=== PATIENT | female | born 1970 | race Caucasian/White ===

== ENCOUNTER 2017-06-11 17:22 | Emergency (ER) | payer BC ==
[2017-06-11] MEDS ORDERED: Pepcid 20 MG VIAL IV ONE ×2 (17:40→17:46)
[2017-06-11] MEDS ORDERED: BABY ASPIRIN 81 MG CHEW PO ONE (17:40)
[2017-06-11] MEDS ORDERED: Vistaril 50 MG/ML IM ONE ×2 (17:41→17:46)
[2017-06-11] MEDS ORDERED: Sodium Chloride 0.9% 1000 ML 1,000 ML IV SCH (17:45)
[2017-06-11] MEDS ORDERED: Sodium Chloride 0.9% 1000 ML 1,000 ML ONE (17:46)
[2017-06-11] MEDS ORDERED: BABY ASPIRIN 81 MG CHEW ONE (17:46)
[2017-06-11 17:52] LABS: BASOPHIL % 0.3 % (0.0-0.4); Eosinophil % 3.1 % (0.00-5.0); Lymphocytes % 34.6 % (24.0-44.0); Mean Cell Volume 84.7 fl (78-100); Mean Corpuscular Hemoglobin 29.1 pg (26-32); Mean Platelet Volume 9.4 fl (6-9.5); Platelet Count 264 K/mm3 (150-450); Red Blood Count 4.64 M/mm3 (4.1-5.4); Red Cell Distribution Width 13.6 % (11.5-14.0); White Blood Count 5.8 K/mm3 (4.0-10.5)
--- NOTE | 2017-06-11 18:04 | ERPHSYRPT ---
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 slight SOB and states sweating. states at [employer] prior to this episode. able to reporduct pain on palpation. lungs clear. denies cough. has jhad similar episdes in the pasrt and was told she had anxiety. denies leg swelling. Triage Nursing Assessment: alert and oriented. tearful anxious. 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 has [employer] prior to episode. able to reproduce pain on palpation. lungs clear bilat. denies leg swelling. denies cough. Physician History: CC: chest pain Hx: 46 y/o patient of Dr Botello with hx of breast CA s/p bilateral mastectomy in September. She has hx of COPD. She was at [employer] and had chest pain, burning in nature, radiating to her throat, associated with shortness of breath. No fever or cough. She took a baby asa from the pharmacy. She was scared this was more than her usual GERD. She has been sleeping a lot. She was upset that her friend yesterday from cancer. She states perimenopausal. Timing/Duration: today Chest Pain Radiation: neck Severity of Pain-Max: severe Severity of Pain-Current: moderate Nitro Today/Relief: no nitro taken today Aspirin Treatment Today: 81 mg x 2, provided at home, provided by ED Allergies/Adverse Reactions: Sulfa (Sulfonamide Antibiotics) Allergy (Verified 06/11/17 18:36) Immunizations Up to Date: Yes - Review of Systems Constitutional: No Fever, No Chills Eyes: No Symptoms Ears, Nose, & Throat: No Symptoms Respiratory: Dyspnea, No Cough Cardiac: Chest Pain, No Edema, No Syncope Abdominal/Gastrointestinal: No Abdominal Pain, No Nausea, No Vomiting Genitourinary Symptoms: No Dysuria Skin: No Rash Neurological: No Headache All Other Systems: Reviewed and Negative - Past Medical History Pertinent Past Medical History: Yes Respiratory History: COPD Female Reproductive Disorders: Breast Cancer - Past Surgical History Past Surgical History: Yes Female Surgical History: Mastectomy - Social History Smoking Status: Current every day smoker Drug Use: none Patient Lives Alone: No - Nursing Vital Signs Nursing Vital Signs: Initial Vital Signs Pulse Rate 97 H 06/11/17 17:29 Respiratory Rate 20 06/11/17 17:29 Blood Pressure 157/90 06/11/17 17:29 O2 Sat by Pulse Oximetry 98 06/11/17 17:29 Pain Scale Pain Intensity 0 - Physical Exam General Appearance: alert, obese, other (very anxious appearing and upset) Eye Exam: PERRL/EOMI Ears, Nose, Throat Exam: normal ENT inspection, moist mucous membranes Neck Exam: normal inspection, non-tender, supple Respiratory Exam: normal breath sounds Cardiovascular Exam: regular rate/rhythm Gastrointestinal/Abdomen Exam: soft, No tenderness, No distention Back Exam: normal inspection Extremity Exam: normal inspection, normal range of motion, No calf tenderness, No pedal edema Neurologic Exam: alert, oriented x 3, cooperative, sensation nml, No motor deficits Skin Exam: warm, dry, No rash SpO2 Interpretation: normal SpO2: 97 Oxygen Delivery: Room Air - Course Nursing assessment & vital signs reviewed: Yes EKG Interpreted by Me: RATE (81), Sinus Rhythm, NORMAL AXIS, NORMAL INTERVALS ( QTc 437), NORMAL QRS, NORMAL ST-T - Radiology Exams cxr X-ray Interpretation: Interpreted by me, Negative, No Pneumonia, Other (no mass) Ordered Tests: Active Orders 24 hr Category Date Time Status Seat Joiner Chainstitch STAT Care 06/11/17 17:41 Active EKG-ER Only STAT Care 06/11/17 17:40 Active IV Insertion STAT Care 06/11/17 17:40 Active Pulse Oximetry (ED) STAT Care 06/11/17 17:40 Active CHEST 1 VIEW (PORTABLE) Stat Exams 06/11/17 17:41 Taken CHEST WITH CONTRAST [CT] Stat Exams 06/11/17 18:58 Taken CBC W DIFF Stat Lab 06/11/17 17:45 Completed CMP Stat Lab 06/11/17 17:45 Completed D-DIMER QUANTITATION Stat Lab 06/11/17 17:45 Completed HCG QUALITATIVE,SERUM Stat Lab 06/11/17 17:45 Completed TROPONIN Q3H Lab 06/11/17 17:45 Completed TROPONIN Q3H Lab 06/11/17 20:55 Completed TROPONIN Q3H Lab 06/11/17 23:45 Ordered TROPONIN Q3H Lab 06/12/17 02:45 Ordered TROPONIN Q3H Lab 06/12/17 05:45 Ordered Medication Summary Generic Name Dose Route Start Last Admin Trade Name Tru PRN Reason Stop Dose Admin Sodium Chloride 1,000 mls @ 100 mls/hr 06/11/17 17:45 06/11/17 17:50 Sodium Chloride 0.9% 1000 Ml IV 07/11/17 17:44 100 mls/hr .Q10H WEI Administration Discontinued Medications Generic Name Dose Route Start Last Admin Trade Name Tru PRN Reason Stop Dose Admin Aspirin 81 mg 06/11/17 17:40 06/11/17 17:53 Baby Aspirin 81 Mg Chew PO 06/11/17 17:41 81 mg STAT ONE Administration Aspirin Confirm 06/11/17 17:46 Baby Aspirin 81 Mg Chew Administered 06/11/17 17:47 Dose 81 mg .ROUTE .STK-MED ONE Famotidine 20 mg 06/11/17 17:40 06/11/17 17:49 Pepcid 20 Mg Vial IV 06/11/17 17:41 20 mg STAT ONE Administration Famotidine Confirm 06/11/17 17:46 Pepcid 20 Mg Vial Administered 06/11/17 17:47 Dose 20 mg IV .STK-MED ONE Hydroxyzine HCl 50 mg 06/11/17 17:41 06/11/17 17:49 Vistaril 50 Mg/Ml IM 06/11/17 17:42 50 mg STAT ONE Administration Hydroxyzine HCl Confirm 06/11/17 17:46 Vistaril 50 Mg/Ml Administered 06/11/17 17:47 Dose 50 mg IM .STK-MED ONE Lab/Rad Data: Laboratory Result Diagrams 06/11/17 17:45 06/11/17 17:45 Laboratory Results 06/11/17 06/11/17 06/11/17 Range/Units 20:55 17:45 17:45 WBC (4.0-10.5) K/mm3 RBC (4.1-5.4) M/mm3 Hgb (12.0-16.0) gm/dl Hct (35-47) % MCV (78-100) fl MCH (26-32) pg MCHC (32-36) g/dl RDW (11.5-14.0) % Plt Count (150-450) K/mm3 MPV (6-9.5) fl Gran % (36.0-66.0) % Lymphocytes % (24.0-44.0) % Monocytes % (0.0-12.0) % Eosinophils % (0.00-5.0) % Basophils % (0.0-0.4) % Basophils # (0-0.4) D-Dimer (0-500) ng/mL Sodium (136-145) mEq/L Potassium (3.5-5.1) mEq/L Chloride (98-107) mEq/L Carbon Dioxide (21-32) mEq/L Anion Gap (5-15) MEQ/L BUN (9-20) mg/dL Creatinine (0.55-1.30) mg/dl Estimated GFR ML/MIN Glucose (70-110) MG/DL Calcium (8.5-10.1) mg/dL Total Bilirubin (0.2-1.0) mg/dL AST (15-37) U/L ALT (12-78) U/L Alkaline Phosphatase (46-116) U/L Troponin I < 0.017 < 0.017 (0.000-0.056) ng/ml Serum Total Protein (6.4-8.2) gm/dL Albumin (3.4-5.0) g/dL Serum , Qual NEGATIVE (Negative) 06/11/17 06/11/17 06/11/17 Range/Units 17:45 17:45 17:45 WBC 5.8 (4.0-10.5) K/mm3 RBC 4.64 (4.1-5.4) M/mm3 Hgb 13.5 (12.0-16.0) gm/dl Hct 39.3 (35-47) % MCV 84.7 (78-100) fl MCH 29.1 (26-32) pg MCHC 34.4 (32-36) g/dl RDW 13.6 (11.5-14.0) % Plt Count 264 (150-450) K/mm3 MPV 9.4 (6-9.5) fl Gran % 55.0 (36.0-66.0) % Lymphocytes % 34.6 (24.0-44.0) % Monocytes % 7.0 (0.0-12.0) % Eosinophils % 3.1 (0.00-5.0) % Basophils % 0.3 (0.0-0.4) % Basophils # 0.02 (0-0.4) D-Dimer 684 H* (0-500) ng/mL Sodium 141 (136-145) mEq/L Potassium 3.6 (3.5-5.1) mEq/L Chloride 104 (98-107) mEq/L Carbon Dioxide 26.2 (21-32) mEq/L Anion Gap 14.2 (5-15) MEQ/L BUN 11 (9-20) mg/dL Creatinine 0.83 (0.55-1.30) mg/dl Estimated GFR > 60 ML/MIN Glucose 130 H (70-110) MG/DL Calcium 9.3 (8.5-10.1) mg/dL Total Bilirubin 0.30 (0.2-1.0) mg/dL AST 35 (15-37) U/L ALT 38 (12-78) U/L Alkaline Phosphatase 115 (46-116) U/L Troponin I (0.000-0.056) ng/ml Serum Total Protein 7.9 (6.4-8.2) gm/dL Albumin 3.6 (3.4-5.0) g/dL Serum , Qual (Negative) - Progress Progress Note: 06/11/17 18:58 Pt is feeling better after IVF, pepcid, and vistaril. She has hx of CA with pleuritic chest pain. Discussed PE and will get CTA to rule out PE. 06/11/17 19:37 Await CTA results. Report to dr Shirley for further care and disposition. - Departure Clinical Impression: Non-cardiac chest pain Condition: Fair Referrals: ABELARDO BOTELLO [Primary Care Provider] - Additional Instructions: Return home. Rest. Plenty of fluids follow-up with Dr. Hicks call tomorrow and schedule an appointment. Return for acute distress or for severe symptoms. Or for any problems. <ANGELINA SHIRLEY - Last Filed: 06/11/17 21:36> - Progress Progress: improved, re-examined Air Movement: fair Progress Note: 06/11/17 20:40 46-year-old white female with history of breast cancer status post bilateral mastectomy in September also with a history of COPD. Patient arrives with complaint of pain and burning in her anterior chest 35 minutes prior to arrival. Patient initially seen by Dr. Urias. Patient given Vistaril improved EKG on this patient normal sinus rhythm 81 bpm normal EKG Chest x-ray no acute disease process noted CTA of the chest negative PE, negative cardiopulmonary findings small hiatal hernia. Patient's CBC CMP troponin within normal limits. D-dimer is slightly elevated at 684. Patient currently pain free. Will plan to repeat troponin plan home if normal. Physical examination well-developed obese white female alert oriented 3. Head atraumatic normocephalic. Eyes PERRLA EOMI fundi unremarkable. Ears TMs engle intact bilaterally. Nose is clear. Throat is clear. Neck is supple full range of motion. Lungs clear to auscultation and equal bilaterally. Heart regular rate and rhythm without murmur. Abdomen soft nontender nondistended positive bowel sounds. Extremities full range of motion pulse equal symmetrical 2 over 4. Neuro cranial nerves II through XII are intact DTRs symmetrical 2 over 4 [place] Coma Scale is 15. Impression chest pain. Plan repeat troponin. 06/11/17 21:34 Patient without complaints no further chest pain rhythm stable. Repeat troponin within normal limits Will discharge. - Departure Time of Disposition: 21:35 Departure Disposition: Home Critical Care Time: No
[2017-06-11 18:15] LABS: ALBUMIN 3.6 g/dL (3.4-5.0); ALKALINE PHOSPHATASE 115 U/L (46-116); ANION GAP 14.2 MEQ/L (5-15); BLOOD UREA NITROGEN 11 mg/dL (9-20); CHLORIDE 104 mEq/L (98-107); Carbon Dioxide 26.2 mEq/L (21-32); Glucose 130 MG/DL (70-110); Potassium 3.6 mEq/L (3.5-5.1); SGOT/AST 35 U/L (15-37); SGPT/ALT 38 U/L (12-78); SODIUM 141 mEq/L (136-145); Total Protein 7.9 gm/dL (6.4-8.2)
[2017-06-11 21:46] VITALS: BP 110/74; PULSE 70; O2SAT 96
--- NOTE | 2017-06-12 08:32 | XRAY ---
Indication: Chest pain. Comparison: April 10, 2013. Portable chest remains clear. Heart is not enlarged. Bony thorax intact. No new/acute findings.
--- NOTE | 2017-06-12 08:38 | XRAY ---
Indication: Chest pain, short of breath, and elevated d-dimer. Multiple contiguous axial images obtained through the chest using 80 cc Isovue 370 contrast and PE protocol. Comparison: None There is satisfactory opacification of the pulmonary arteries to include the lobar and segmental branches. No filling defect or pulmonary embolus. Heart is not enlarged. Aorta is normal in course and caliber. No pathologic mediastinal/hilar lymphadenopathy. Small hiatal hernia. Examination of the lung parenchyma is negative for suspicious pulmonary mass, infiltrate, consolidation, or effusion. Bony thorax intact. Limited upper abdomen demonstrates fatty liver and 12.3 cm splenomegaly. Impression: 1. Negative pulmonary embolus. No acute cardiopulmonary abnormalities. 2. Incidental small hiatal hernia, fatty liver, and splenomegaly. CT DI 22.75
== END 2017-06-11 21:49 | disposition home or self-care (01) ==
LOC: ED 17:22
DX: R07.89 Other chest pain (principal); Z85.3 Personal history of malignant neoplasm of breast; J44.9 Chronic obstructive pulmonary disease, unspecified
CPT/HCPCS: 36000; 36415; 71010; 71260; 80053; 84484; 84703; 85025; 85379; 93005; 93041; 96360; 96361; 96372; 96374; 99284; J3410; A9270-GY

== ENCOUNTER 2020-04-08 06:47 | Day surgery (SDC) | payer BC ==
--- NOTE | 2020-04-01 15:02 | HP ---
DATE OF SURGERY: 04/08/2020 HISTORY OF PRESENT ILLNESS: The patient presented to the office in need of endoscopy. The patient has a history of breast cancer. She does not have a colonoscopy to date. She is five years in remission. She denies any symptoms currently. PAST MEDICAL HISTORY: Hypertension. Depression. Hyperlipidemia. Reflux. PAST SURGICAL HISTORY: Tubal ligation. Cyst removal. Torn meniscus repair. Endometrial ablation. Double mastectomy. ALLERGIES: SULFA. LATEX. MEDICATIONS: Lisinopril, fluoxetine, Zetia, Prilosec. FAMILY HISTORY: Mother cancer of unknown type, heart disease, chronic obstructive pulmonary disease. Father heart disease. SOCIAL HISTORY: Smokes one pack or less a day. Alcohol - Drinks occasionally. REVIEW OF SYSTEMS: CONSTITUTIONAL: Denies fever or chills. CHEST: Denies shortness of breath. CVS: Denies chest pain. ABDOMEN: Denies abdominal pain, nausea, vomiting, diarrhea, constipation or rectal bleeding. : Denies dysuria or hematuria. PHYSICAL EXAMINATION: GENERAL: No acute distress. CHEST: Nonlabored. No shortness of breath. CVS: Regular rate and rhythm. ABDOMEN: Soft, nontender to palpation. EXTREMITIES: No edema. NEUROLOGIC: Alert. PSYCHIATRIC: Appropriate. IMPRESSION: Screening colonoscopy, history of breast cancer. PLAN: Colonoscopy with Dr. Isac Cadet. As dictated by Jackie Leblanc NP.
[~2020-04-08 06:47] MED LIST: DIPRIVAN 200 MG/20 ML IV ONE; Ketamine HCl 50 MG/ML ONE; Lactated Ringers 1,000 ML IV ONE; Lactated Ringers 1,000 ML IV SCH
[2020-04-08] MEDS ORDERED: Transderm Scop 1.5MG Patch ONE (07:50)
[2020-04-08] MEDS ORDERED: Transderm Scop 1.5MG Patch TOP PRN (07:53)
[2020-04-08] MEDS ORDERED: Lactated Ringers 1,000 ML IV ONE (09:22)
[2020-04-08 10:14] VITALS: O2SAT 97
[2020-04-08 10:15] VITALS: BP 123/83; PULSE 82
--- NOTE | 2020-04-08 10:35 | OP ---
SURGERY DATE/TIME: 04/08/2020 0851 PREOPERATIVE DIAGNOSES: 1) Screening. 2) History of left breast cancer. POSTOPERATIVE DIAGNOSIS: Two polyps both 1 cm. PROCEDURE: Colonoscopy complete to cecum with hot polypectomy, a 1.0 cm hepatic and 1.0 cm descending colon polyp with hot biopsy forceps. SURGEON: Isac Cadet M.D. ANESTHESIA: MAC. COMPLICATIONS: None. CONDITION: Stable. FINDINGS: Moderate internal hemorrhoids. INDICATION: The patient presents for screening. She does have a history of breast cancer. DESCRIPTION OF PROCEDURE: She is taken to endoscopy. MAC sedation provided. Excellent anesthesia level was present. Anal digital examination satisfactory. Scope advanced to the cecum. Ileocecal valve and appendiceal orifice was normal. On withdrawal, hepatic flexure polyp 1 cm and a mid-descending colon polyp 1 cm both taken with hot biopsy forceps to extinction and career services representative biopsy submitted in two separate containers. Moderate internal hemorrhoids. The patient tolerated the procedure satisfactorily. Three year follow up.
== END 2020-04-08 10:10 | disposition home or self-care (01) ==
LOC: SDC 06:47
PROVIDERS: ATTEND Surgery
DX: Z12.11 Encounter for screening for malignant neoplasm of colon (principal); D12.3 Benign neoplasm of transverse colon; D12.4 Benign neoplasm of descending colon; K64.8 Other hemorrhoids; I10 Essential (primary) hypertension; E78.5 Hyperlipidemia, unspecified; K21.9 Gastro-esophageal reflux disease without esophagitis; Z85.3 Personal history of malignant neoplasm of breast; Z79.899 Other long term (current) drug therapy
CPT/HCPCS: J2704; A9270-GY

== ENCOUNTER 2024-05-15 06:42 | Day surgery (SDC) | payer BC ==
--- NOTE | 2024-05-13 17:56 | HP ---
HISTORY AND PHYSICAL HISTORY OF PRESENT ILLNESS: The patient is a 53-year-old female who presents with need for endoscopy. She had a colonoscopy about 2020. She had some polyps. She has a personal history of breast cancer. She has no colon complaints. No family history of colon cancer. PAST MEDICAL HISTORY: Hypertension, hyperlipidemia, GERD, breast cancer, COPD, arthritis, diabetes. HOME MEDICATIONS: Zetia, omeprazole, lisinopril, duloxetine, atorvastatin, albuterol. ALLERGIES: [place], sulfa, adhesives. PAST SURGICAL HISTORY: Hysterectomy, ganglion cyst, endometrial ablation, bilateral mastectomy. SOCIAL HISTORY: An everyday smoker. Occasional alcohol. FAMILY HISTORY: Negative. REVIEW OF SYSTEMS: CONSTITUTIONAL: Denies fever or chills. CHEST: Denies shortness of breath. CARDIOVASCULAR: Denies any chest pain. ABDOMEN: Denies abdominal pain. PHYSICAL EXAMINATION: GENERAL: No acute distress. CARDIOVASCULAR: Regular rate and rhythm. RESPIRATORY: Nonlabored. No shortness of breath ABDOMEN: Soft. IMPRESSION: History of polyps, history of breast cancer. PLAN: Colonoscopy with Dr. Isac Cadet. This report was dictated for Dr. Cadet by Jackie Leblanc NP.
[2024-05-15] MEDS: Lactated Ringers 1,000 ML IV SCH (07:05)
[2024-05-15] MEDS ORDERED: Xylocaine-Mpf 2% 5 Ml Vial ONE (09:07)
[2024-05-15] MEDS ORDERED: Versed 2 MG/2 ML Injection ONE (09:08)
[2024-05-15] MEDS ORDERED: DIPRIVAN 200 MG/20 ML IV ONE ×2 (09:08→09:49)
[2024-05-15] MEDS ORDERED: ROBINUL ONE (09:27)
[2024-05-15] MEDS ORDERED: SUBLIMAZE 100 MCG/2 ML ONE (09:32)
[2024-05-15 09:47] VITALS: RESP 16
[2024-05-15 10:01] VITALS: BP 113/82; PULSE 82; TEMP 96.3; O2SAT 99
--- NOTE | 2024-05-16 09:40 | OP ---
SURGERY DATE/TIME: 05/15/2024 [id number] PREOPERATIVE DIAGNOSES: 1) Epigastric discomfort, some difficulty swallowing. 2) History of colon polyps 5 years. POSTOPERATIVE DIAGNOSES: 1) Gastroesophageal mass. 2) Colon polyps. PROCEDURES: 1) Esophagogastroduodenoscopy with 5 cold biopsies at the esophagogastric junction. There were findings of an irregular mass at the esophagogastric junction. 2) Colonoscopic examination complete to the cecum with hot polypectomy of 5 mm hepatic flexure polyp, hot polypectomy 5 mm rectal polyp and hot snare polypectomy of a proximal sigmoid lesion at 50 cm that was pedunculated. SURGEON: Isac Cadet MD AUTOMOTIVE WELDER: Frederick Hines Med Student III ANESTHESIA: General. COMPLICATIONS: None. CONDITION: Stable. INDICATION: The patient presents with the above indications. DESCRIPTION OF PROCEDURE AND FINDINGS: Patient was brought to the endoscopy. Left lateral decubitus position. Scope introduced. Pharyngoesophageal junction normal. Esophagus normal down to 32 cm. A mass was between 32 and 38. It was 6 cm long, it was irregular and involved about 270 degrees of the esophagus. Five retail customer service representative cold biopsies were taken. There was a 1 inch hiatal hernia. The body and antrum was, otherwise, normal. Pylorus normal. Duodenal bulb normal. Second portion normal. The scope looped upon itself 1 inch hiatal hernia. Mass was not visible on the stomach side of the scope. Scope was then withdrawn, noted again. Pictures were taken. Patient tolerated the procedure satisfactory. Anal digital examination satisfactory tone. Scope was advanced to the cecum. Base of the cecum, ileocecal valve, appendiceal orifice was normal. Up in the hepatic flexure there was a 5 mm polyp taken with a hot biopsy forceps to extinction. At 50 cm, the proximal sigmoid a 1.5 cm pedunculated polyp was taken in the middle of the pedicle. There was about 3 mm clear zone to the polyp side and about a 2 mm clear zone to the base side. It transected nicely. There was no bleeding and nothing else was done. It was totally retrieved. Scope was placed back to this point and brought back and then the upper rectum 5 mm polyp taken with a hot biopsy forceps. Patient tolerated the procedure satisfactory. Very specific instructions to the that I am concerned about the esophageal pathology and the need to make sure and come to the office and talk about this as soon as we get this back.
== END 2024-05-15 10:10 | disposition home or self-care (01) ==
LOC: SDC 06:42
PROVIDERS: ATTEND Surgery
DX: Z09 Encounter for follow-up examination after completed treatment for conditions other than malignant neoplasm (principal); Z86.0100 Personal history of colon polyps, unspecified; R13.10 Dysphagia, unspecified; C16.0 Malignant neoplasm of cardia; R10.13 Epigastric pain; K22.9 Disease of esophagus, unspecified; Z85.3 Personal history of malignant neoplasm of breast; D12.7 Benign neoplasm of rectosigmoid junction; D12.0 Benign neoplasm of cecum; D12.5 Benign neoplasm of sigmoid colon
CPT/HCPCS: 93005; J2250; J2704; J3010

== ENCOUNTER 2024-10-16 08:19 | Day surgery (SDC) | payer BC ==
--- NOTE | 2024-10-15 12:42 | HP ---
HISTORY AND PHYSICAL HISTORY OF PRESENT ILLNESS: Patient is a 54-year-old female who presents with esophageal cancer. She sees Dr. Orr. She is on chemo. She needs an EGD for surveillance. She has lost some weight. She does eat okay. She is eating chicken and steak. PAST MEDICAL HISTORY: Esophageal cancer, COPD, GERD, arthritis, hyperlipidemia, hypertension. HOME MEDICATIONS: Albuterol, promethazine, ibuprofen, Zetia, B12, B3, Prozac, omeprazole, and lisinopril. ALLERGIES: [place], sulfa, and adhesives. PAST SURGICAL HISTORY: Tubal ligation, breast mastectomy. SOCIAL HISTORY: Current smoker. Occasional alcohol. FAMILY HISTORY: Ovarian cancer, coronary artery disease. REVIEW OF SYSTEMS: CONSTITUTIONAL: Denies fever or chills. CHEST: Denies shortness of breath. CARDIOVASCULAR: Denies chest pain. ABDOMEN: Denies abdominal pain. PHYSICAL EXAMINATION: GENERAL: No acute distress. CARDIOVASCULAR: Regular rate and rhythm. RESPIRATORY: Nonlabored. No shortness of breath. ABDOMEN: Soft. IMPRESSION: Esophageal cancer, needs surveillance. PLAN: EGD with Dr. Isac Cadet. This report was dictated for Dr. Cadet by Jackie Leblanc NP.
[2024-10-16] MEDS: Lactated Ringers 1,000 ML IV SCH (08:44)
[2024-10-16] MEDS ORDERED: propofoL IV ONE (10:28)
[2024-10-16 11:09] VITALS: RESP 18
[2024-10-16 11:32] VITALS: BP 132/90; PULSE 84; O2SAT 99
[2024-10-16 11:37] VITALS: TEMP 97.2
--- NOTE | 2024-10-17 10:35 | OP ---
SURGERY DATE/TIME: 10/16/2024 [id number] PREOPERATIVE DIAGNOSES: 1) Followup esophageal cancer with esophageal cancer treatment. 2) Esophageal cancer. POSTOPERATIVE DIAGNOSIS: Persistent esophageal cancer, visible. PROCEDURE: Esophagogastroduodenoscopy with cold biopsy x2. SURGEON: Isac Cadet MD. ANESTHESIA: General. COMPLICATIONS: None. CONDITION: Stable. INDICATION FOR PROCEDURE: The patient has had several chemotherapy treatments. She still lacks 1 chemotherapy treatment. She has had radiation treatment to her L2 spine, which has been completed. DESCRIPTION OF PROCEDURE: She was taken to endoscopy. Left lateral decubitus position. Scope was introduced. Pharyngoesophageal junction normal. Vocal cords normal. The tumor was located 30 to 35 cm, maybe had reduced in size 1 hair but not much. The tumor itself was exophilic, cauliflower and very oozy. Three cold biopsies were taken. The stomach was satisfactory. Pylorus was satisfactory. Scope looped back on itself. You could not see the tumor from below. Scope withdrawn. There was some bleeding but it was very limited, about mild nosebleed. It looked like it had stopped from the biopsies. The findings were discussed with the family.
== END 2024-10-16 11:38 | disposition home or self-care (01) ==
LOC: SDC 08:19
PROVIDERS: ATTEND Surgery
DX: C15.9 Malignant neoplasm of esophagus, unspecified (principal)
CPT/HCPCS: J1642; J2704